=== PATIENT | female | born 1970 | race Caucasian/White ===

== ENCOUNTER 2021-09-14 16:35 | Emergency (ER) | payer BC, SELFPAY ==
--- NOTE | ~2021-09-14 | XR_ITS ---
EXAM: XR ankle RT min 3V, XR foot RT min 3V DATE: 09/14/2021 17:39 HISTORY: GLF TODAY, SWELLING/PAIN TO LATERAL SIDE/WHEN WB . COMPARISON: None available. FINDINGS: Normal mineralization. Curvilinear fracture fragment at the tip of lateral malleolus. No o ther fracture. No dislocation. No lytic or blastic lesion. Scattered degenerative change. Achilles an d plantar enthesopathy. Moderate hallux valgus. No erosion or periosteal change. Lateral soft tissue swelling. Ankle joint effusion. IMPRESSION: Small right lateral malleolus avulsion fracture. Reviewed, dictated and finalized at location K. IMPRESSION: Small right lateral malleolus avulsion fracture.
[2021-09-14 16:38] VITALS: BP 152/90; PULSE 80; RESP 18; TEMP 36.7; O2SAT 96
--- NOTE | 2021-09-14 16:49 | ED.GENADULT ---
HPI - General Adult General Chief complaint: Extremity Injury, Lower Stated complaint: R ANKLE INJURY Time Seen by Provider: 09/14/21 16:43 Source: RN notes reviewed History of Present Illness HPI narrative: Patient presents emergency department from home for right ankle pain. Patient states that she is currently visiting from out of town her son in college she states she is going to get her dog cage out of the car when she tripped and rolled her right ankle she states she is had pain in her right ankle since that time with swelling and bruising in the right ankle states the pain goes into her right foot she states she tried taking ibuprofen at home with no relief she denies any other trauma or injury denies any numbness or tingling in the extremities Related Data Allergies Allergy/AdvReac Type Severity Reaction Status Date / Time cefprozil Allergy Unknown Verified 09/14/21 18:14 cephalexin Allergy Unknown Verified 09/14/21 18:14 clindamycin Allergy Unknown Verified 09/14/21 18:11 doxycycline Allergy Unknown Verified 09/14/21 18:14 famotidine Allergy Unknown Verified 09/14/21 18:14 hydroxyzine Allergy Unknown Verified 09/14/21 18:14 latex Allergy Unknown Verified 09/14/21 18:14 naproxen Allergy Unknown Verified 09/14/21 18:14 propoxyphene Allergy Unknown Verified 09/14/21 18:14 Sulfa (Sulfonamide Allergy Unknown Verified 09/14/21 18:14 Antibiotics) tetracycline Allergy Unknown Verified 09/14/21 18:14 Review of Systems Review of Systems: Gen.: Denies fevers or chills Musculoskeletal: See HPI Neuro: Denies numbness, tingling, weakness Skin: Denies rash Endo: Denies DM PMFSH Past Medical History Medical History (Updated 09/14/21 @ 18:15 by Zaid Dong DO) Patient denies significant medical history Social History Social History (Updated 09/14/21 @ 16:50 by Zaid Dong DO) Smoking status: Never smoker Exam Narrative: APPEARANCE: No acute distress, nontoxic, resting in bed Eyes: EOMI HEENT: Normocephalic, atraumatic, RESPIRATORY: No respiratory distress MUSCULOSKELETAl: Tender palpation of the right lateral malleolus with swelling ecchymosis present tenderness over the anterior ankle as well as the base of the fifth metatarsal no proximal fibular tenderness dorsalis pedis pulse 2+ neurovascular intact NEURO: Awake and alert. Following commands, speech normal, no focal deficits SKIN:: Warm, dry. Normal Color no rash or lesions Course Course Emergency Course: Patient is from [place] and is returning tomorrow she will follow-up with orthopedics in [place] Discussed with patient results of workup and diagnosis. Discussed need for follow-up with primary care, proper use of medication, and reasons to return to the emergency department. Patient understands and agrees to current treatment plan Vital Signs Vital signs: Vital Signs Temperature 98.1 F 09/14/21 16:38 Pulse Rate 80 09/14/21 16:38 Respiratory Rate 18 09/14/21 16:38 Blood Pressure 152/90 H 09/14/21 16:38 Pulse Oximetry 96 09/14/21 16:38 Temperature 98.1 F 09/14/21 16:38 Pulse Rate 80 09/14/21 16:38 Respiratory Rate 18 09/14/21 16:38 Blood Pressure 152/90 H 09/14/21 16:38 Pulse Oximetry 96 09/14/21 16:38 Procedures Orthopedic Splinting/Casting Injury #1: Additional Comments: Splint was placed by the emergency department vending technician under my supervision. The patient was neurovascularly intact both pre-and post procedure. Medical Decision Making Vital Signs Vital Signs: Vital Signs Temperature 98.1 F 09/14/21 16:38 Pulse Rate 80 09/14/21 16:38 Respiratory Rate 18 09/14/21 16:38 Blood Pressure 152/90 H 09/14/21 16:38 Pulse Oximetry 96 09/14/21 16:38 Temperature 98.1 F 09/14/21 16:38 Pulse Rate 80 09/14/21 16:38 Respiratory Rate 18 09/14/21 16:38 Blood Pressure 152/90 H 09/14/21 16:38 Pulse Oximetry 96 09/14/21 16:38 Imaging Data Ra
[2021-09-14] MEDS: HYDROcodone/acetaminophen (*CRX) 5-325 MG TABLET 1 TAB PO (16:53)
== END 2021-09-14 18:42 | disposition home or self-care (01) ==
LOC: ANHED 18:39
PROVIDERS: Emergency Provider Emergency Medicine
DX: S82.61XA Displaced fracture of lateral malleolus of right fibula, initial encounter for closed fracture (principal); X50.9XXA Other and unspecified overexertion or strenuous movements or postures, initial encounter
CPT/HCPCS: 29515; 73610; 73630; 99284; A9270